=== PATIENT | male | born 1980 | race Caucasian/White ===

== ENCOUNTER 2020-05-24 15:53 | Emergency (ER) | payer OTHER, SELFPAY ==
[2020-05-24 16:12] VITALS: BP 127/62; PULSE 79; RESP 16; TEMP 36.9; O2SAT 99
--- NOTE | 2020-05-24 16:22 | ED.WOUNDLAC ---
HPI - Wound/Laceration General Chief Complaint: Wound/Laceration Stated Complaint: Laceration on finger Time Seen by Provider: 05/24/20 16:22 Source: patient and RN notes reviewed Mode of arrival: ambulatory Limitations: no limitations History of Present Illness HPI narrative: 40-year-old male presents to the [facility] with complaints of a laceration to the distal aspect left fifth finger dorsal with no nailbed involvement. Wound is clean. Bleeding is well controlled. Full range of motion of the DIP and PIP joints. Sensation intact distal to injury. Capillary refill under 2 seconds Unknown last tetanus Related Data Home Medications Medication Instructions Recorded Confirmed No Home Medications 05/24/20 05/24/20 Allergies Allergy/AdvReac Type Severity Reaction Status Date / Time No Known Allergies Allergy Verified 05/24/20 16:12 Review of Systems Review of Systems: Narrative: CONSTITUTIONAL: Denies fever, chills, or sweats. CARDIOVASCULAR: Denies chest pain, palpitations, or edema. RESPIRATORY: Denies cough or dyspnea. SKIN: Denies rash or itching. Laceration dorsal, distal fifth finger left hand MUSCULOSKELETAL: Denies back pain, joint pain, or myalgia. NEUROLOGIC: Denies headache, numbness, or weakness. PSYCHIATRIC: Denies anxiety or depression. All other systems reviewed are negative, except as documented in HPI. PMFSH Social History Social History Gender identity (if verbalized by the patient): Male Comments At the time of my signature, I reviewed and agree with the nursing past medical, surgical, social, and family history. There is no relevant family history pertinent to the patient complaint. Exam Narrative: Exam Narrative: GENERAL: This is a well-nourished, well-developed patient, in no apparent distress. HEAD: normocephalic, atraumatic. EYES: PERRL. Sclera clear/white. Vision is grossly intact. EARS: External ears normal CARDIOVASCULAR: Regular rate and rhythm without murmurs, gallops, or rubs. RESPIRATORY: Clear to auscultation. Breath sounds equal bilaterally. No wheezes, rales, or rhonchi. SKIN: warm, Dry, intact with no suspicious lesions or rash, good texture and turgor. 1.5 cm laceration to the dorsal aspect , DIP joint. Does not separate with movement of joint. Clean, Bleeding controlled. NEURO: awake, alert, and oriented to person, place and time. There were no obvious focal neurologic abnormalities. EXTREMITIES: No joint tenderness, effusion, or edema noted. BACK: Nontender without deformity. Extrem: Hand/finger images: 1. 1.5 cm laceration Course Vital Signs Vital signs: Vital Signs Temperature 98.5 F 05/24/20 16:12 Pulse Rate 79 05/24/20 16:12 Respiratory Rate 16 05/24/20 16:12 Blood Pressure 127/62 05/24/20 16:12 Pulse Oximetry 99 05/24/20 16:12 Temperature 98.5 F 05/24/20 16:12 Pulse Rate 79 05/24/20 16:12 Respiratory Rate 16 05/24/20 16:12 Blood Pressure 127/62 05/24/20 16:12 Pulse Oximetry 99 05/24/20 16:12 reviewed Procedures Laceration Laceration 1: Date: 05/24/20 Time: 16:25 Site: hand Side (If applicable): left Size (cm): 1.5 Description: linear and clean Pre-repair: wound explored and irrigated ====== Skin Level ====== Skin layer closed with: dermabond ====== Subcutaneous Layer ====== ====== Muscle Layer ====== ====== Tendon Layer ====== MDM - Wound/Laceration Differential Diagnosis Differential diagnosis: Likely laceration, abrasion and avulsion of skin Critical Care Time Critical Care Time Critical Care Time: No Discharge Plan Discharge Clinical Impression: Laceration, Vaccine for [id number], combined Patient Disposition: Home, Self-Care Condition: Stable Instructions: Antibiotic Form, Finger Laceration (ED), Skin Adhesive Care (ED) Patient Language: [place]ian Prescriptions: No Action No
== END 2020-05-24 16:33 | disposition home or self-care (01) ==
PROVIDERS: Emergency Provider Nurse Practitioner
DX: S61.217A Laceration without foreign body of left little finger without damage to nail, initial encounter (principal); X58.XXXA Exposure to other specified factors, initial encounter
CPT/HCPCS: 12001; 99212; G0463

== ENCOUNTER 2020-12-19 17:45 | Emergency (ER) | payer OTHER, SELFPAY ==
[2020-12-19 18:00] VITALS: BP 147/88; PULSE 99; RESP 20; TEMP 36.6; O2SAT 100
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
== END 2020-12-19 18:41 | disposition home or self-care (01) ==
PROVIDERS: Emergency Provider Emergency Medicine
DX: S09.90XA Unspecified injury of head, initial encounter (principal); S16.1XXA Strain of muscle, fascia and tendon at neck level, initial encounter; V49.40XA Driver injured in collision with unspecified motor vehicles in traffic accident, initial encounter
CPT/HCPCS: 99283

== ENCOUNTER 2022-05-22 10:15 | Emergency (ER) | payer OTHER, SELFPAY ==
[2022-05-22 10:24] VITALS: BP 125/73; PULSE 65; RESP 16; TEMP 36.6; O2SAT 100
--- NOTE | 2022-05-22 10:48 | ED.URI ---
HPI - URI/Sore Throat General Chief Complaint: Upper Respiratory Infection Stated Complaint: Left Ear Irritation/Headache Time Seen by Provider: 05/22/22 10:25 Source: patient Mode of arrival: ambulatory Limitations: no limitations History of Present Illness HPI Narrative: Kendrick is a 42-year-old male patient presenting to the clinic today with complaints of left ear pain, nasal congestion, cough, fever, headache, body aches, chills, and sore throat x2 days. He reports his temperature was approximately 101? F. He denies any chest pain or shortness of breath. MD elicited complaint: fever, cough, sore throat, rhinorrhea, nasal congestion and other (Headache, body aches, chills) Related Data Allergies Allergy/AdvReac Type Severity Reaction Status Date / Time No Known Allergies Allergy Verified 05/22/22 10:26 Review of Systems Review of Systems: Pertinent positives per HPI. Patient denies any fever, chills, rash, headache, visual changes, dizziness, cough, shortness of breath, chest pain, palpitations, nausea, vomiting, diarrhea, constipation, abdominal pain, or any urinary issues. COUNT INCLUDES THE [facility] Past Medical History Medical History (Updated 05/22/22 @ 10:48 by Bulmaro Gonzalez APRN) Patient denies significant medical history Social History Social History Smoking status: Current every day smoker Alcohol intake: never Substance use: never Gender identity (if verbalized by the patient): Male Comments At the time of my signature, I reviewed and agree with the nursing past medical, surgical, social, and family history. There is no relevant family history pertinent to the patient complaint. Exam Narrative: General: Well-developed, well nourished, in no apparent distress Head: Normocephalic, atraumatic Eyes: Pupils equally round and reactive to light bilaterally, EOM intact, sclera and conjunctive clear, no discharge, lids normal Ears: TMs intact and dull, ear canals clear, no drainage, grossly hearing normal. Nose: Nares patent, clear nasal discharge, no inflammation, no sinus tenderness. Mouth: Oral pharynx red without lesions or masses, good dentition, MMM. Neck: Supple, trachea midline, no enlargement of anterior or posterior cervical nodes, no thyroid masses or goiter palpable. Cardio: Regular rate and rhythm, s1 and s2 normal, no murmur appreciated. Resp: Clear to auscultation bilaterally, no rhonchi, rales, wheezing or rubs Course Course Emergency Course: Portions of this record may have been created with voice recognition software. Level of Care: Express Care Visit Vital Signs Vital signs: Vital Signs Temperature 36.6 C 05/22/22 10:24 Pulse Rate 65 05/22/22 10:24 Respiratory Rate 16 05/22/22 10:24 Blood Pressure 125/73 05/22/22 10:24 Pulse Oximetry 100 05/22/22 10:24 Oxygen Delivery Room Air 05/22/22 10:24 Temperature 36.6 C 05/22/22 10:24 Pulse Rate 65 05/22/22 10:24 Respiratory Rate 16 05/22/22 10:24 Blood Pressure 125/73 05/22/22 10:24 Pulse Oximetry 100 05/22/22 10:24 Oxygen Delivery Room Air 05/22/22 10:24 Vital signs reviewed MDM - URI/Sore Throat MDM Narrative Medical decision making narrative: At the time of visit patient is resting comfortably on the exam table. COVID, influenza, and strep test were performed. Strep screen was negative. COVID test was positive and influenza a test was positive. Supportive measures were discussed with the patient he voiced understanding discharge instructions agrees to treatment plan. Rx for molnupiravir was sent to the pharmacy. Differential Diagnosis Differential diagnosis: Likely upper respiratory infection, otitis media, sinusitis, viral infection, bronchitis, influenza, pharyngitis and other (COVID) Lab Data Labs: Lab Results 05/22/22 Range/Units 10:38 POC SARS CoV-2 Ag Positive (Negative) Influenza A Screen
== END 2022-05-22 10:53 | disposition home or self-care (01) ==
PROVIDERS: Emergency Provider Nurse Practitioner Family
DX: U07.1 COVID-19 (principal); J10.1 Influenza due to other identified influenza virus with other respiratory manifestations; F17.200 Nicotine dependence, unspecified, uncomplicated
CPT/HCPCS: 87081; 87426; 87804; 87880; 99213; C9803; G0463

== ENCOUNTER 2022-11-01 17:48 | Emergency (ER) | payer OTHER, SELFPAY ==
[2022-11-01 17:56] VITALS: BP 127/69; PULSE 63; RESP 16; TEMP 37; O2SAT 100
[2022-11-01 17:57] VITALS: BP 127/69; PULSE 63; RESP 16; TEMP 37; O2SAT 100
--- NOTE | 2022-11-01 18:02 | ED.EAR ---
HPI - Ear Problem General Chief complaint: Ear Stated complaint: Sinus Time Seen by Provider: 11/01/22 18:02 Source: patient Mode of arrival: ambulatory Limitations: no limitations History of Present Illness HPI Narrative: Patient is a 42-year-old male that presents with 2 weeks of ear pain. Patient wears ear plugs daily. Has history of ear infections and tubes as a child. Patient denies any drainage from ear. Denies use of Q-tips. Has minor congestion. Denies any fever, chills, nausea, vomiting, diarrhea, sore throat, cough. MD Complaint: ear pain Related Data Allergies Allergy/AdvReac Type Severity Reaction Status Date / Time No Known Allergies Allergy Verified 11/01/22 17:57 Review of Systems Review of Systems: All systems reviewed & are unremarkable except as noted in HPI and below Constitutional: Constitutional: Denies body ache(s), Denies chills, Denies fever(s), Denies headache(s) and Denies malaise Eyes: Eyes: Denies blurry vision, Denies eye discharge and Denies irritation ENT: Reports otalgia, Denies headache(s), Reports nasal congestion, Denies nasal discharge and Denies sore throat Cardiovascular: Cardiovascular: Denies chest pain, Denies edema, Denies palpitations and Denies dyspnea on exertion Respiratory: Respiratory: Denies cough and Denies dyspnea on exertion Gastrointestinal: Gastrointestinal: Denies abdominal pain, Denies diarrhea, Denies nausea and Denies vomiting Musculoskeletal: Musculoskeletal: Denies back pain, Denies arthralgias and Denies muscle weakness Integumentary/Breasts: Skin/Breast: Denies pruritus and Denies rash Neurologic: Denies headache(s) Psychiatric: Psychiatric: Reports no additional psychiatric complaints Endocrine: Endocrine: Denies palpitations PMFSH Past Medical History Medical History Patient denies significant medical history Social History Social History Smoking status: Current every day smoker Alcohol intake: never Substance use: never Gender identity (if verbalized by the patient): Male Comments At time of signature, agree with nursing past medical, surgical, social and family history. There is no relevant family history pertinent to the presenting complaint? Exam Const: General: cooperative, healthy appearing, no acute distress and well nourished Nutritional Appearance: well nourished Orientation/consciousness: patient oriented x3 Limitations: no limitations HENMT: Head: normal to inspection, normocephalic and atraumatic Ears: hearing grossly normal bilaterally, TM normal on the right, no periauricular adenopathy, Abnormal EAC present erythema on the left, edema on the left and EAC tenderness on the left and TM abnormal erythematous on the left Face/Nose/Sinus: Normal external nose present, Normal nares present, Normal nasal mucous membranes and turbinates present, No nasal discharge present, normal facial exam and sinuses nontender Face and sinus: normal facial exam and sinuses nontender Mouth: Yes Normal oral and palatal mucosa present, Yes lip normal, Yes tongue normal and Yes moist mucous membranes Throat: posterior oropharynx normal, tonsils normal and uvula midline Eyes: General: appearance normal, both eyes and all related structures Alignment and Position: alignment normal and position normal Eyelids: eyelids normal Pupils: Equal, round and reactive pupils present EOM: EOMs intact bilaterally Neck: Neck: normal visual inspection, full ROM, no lymphadenopathy and supple Chest: Chest palpation & inspection: normal inspection of the chest Resp: Effort & Inspection: normal respiratory effort and able to speak in complete sentences Auscultation: clear to auscultation bilaterally, no crackles, no rales, no rhonchi and no wheezes Cardio: Rate: regular rate Rhythm: regular rhythm Heart sounds: S1 normal heart sound present and S
== END 2022-11-01 18:14 | disposition home or self-care (01) ==
PROVIDERS: Emergency Provider Nurse Practitioner Family
DX: H60.502 Unspecified acute noninfective otitis externa, left ear (principal); H66.002 Acute suppurative otitis media without spontaneous rupture of ear drum, left ear; F17.200 Nicotine dependence, unspecified, uncomplicated
CPT/HCPCS: 99213; G0463

== ENCOUNTER 2023-04-17 12:28 | Emergency (ER) | payer OTHER, SELFPAY ==
[2023-04-17 12:29] VITALS: BP 153/87; PULSE 67; RESP 18; TEMP 36.3; O2SAT 100
[2023-04-17 12:39] VITALS: O2SAT 100
[2023-04-17 13:21] LABS: Influenza A QL RT-PCR Negative (Negative); Influenza B QL RT-PCR Negative (Negative); RSV RNA, RT-PCR Negative (Negative); SARS-CoV-2 RNA PCR Negative (Negative)
--- NOTE | 2023-04-17 14:32 | ED.URI ---
HPI - URI/Sore Throat General Chief Complaint: Upper Respiratory Infection Stated Complaint: flu-like sx Time Seen by Provider: 04/17/23 12:50 History of Present Illness HPI Narrative: 43-year-old male presenting with viral symptoms. States his son has had a stomach bug this week. States that he has had some upset stomach so he was concerned that he might also of 1. He denies vomiting or diarrhea. Denies actual abdominal pain. 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 He is monogamous with his . He denies high risk sexual behaviors. Denies concern for STDs or other complaints. Related Data Allergies Allergy/AdvReac Type Severity Reaction Status Date / Time No Known Allergies Allergy Verified 04/17/23 12:33 Review of Systems Review of Systems: All systems reviewed & are unremarkable except as noted in HPI and below PMFSH Past Medical History Medical History Patient denies significant medical history Social History Social History Smoking status: Current every day smoker Alcohol intake: never Substance use: never Gender identity (if verbalized by the patient): Male Exam Narrative: GENERAL: Well-appearing, well-nourished, and in no acute distress. HEAD: Normocephalic, atraumatic. EYES: PERRLA and EOMI. ENT: Mucous membranes moist. NECK: Supple. CHEST: Clear to auscultation. No respiratory distress. HEART: Regular rate and rhythm. ABDOMEN: Soft, nontender, nondistended EXTREMITIES: Normal range of motion. No edema. SKIN: Warm, dry, folliculitis on left wrist NEURO: No focal deficits. Alert and oriented x3. PSYCH: Normal mood and affect. Course Vital Signs Vital signs: Vital Signs Temperature 97.3 F L 04/17/23 12:29 Pulse Rate 67 04/17/23 12:29 Respiratory Rate 18 04/17/23 12:29 Blood Pressure 153/87 H 04/17/23 12:29 Pulse Oximetry 100 04/17/23 12:29 Oxygen Delivery Room Air 04/17/23 12:29 Temperature 97.9 F 04/17/23 14:46 Pulse Rate 71 04/17/23 14:46 Respiratory Rate 19 04/17/23 14:46 Blood Pressure 139/79 04/17/23 14:46 Pulse Oximetry 100 04/17/23 14:46 Oxygen Delivery Room Air 04/17/23 12:39 MDM - URI/Sore Throat MDM Narrative Medical decision making narrative: 43-year-old male presenting with nausea and a wrist rash. Vitals stable. Exam remarkable for the above. He is negative for influenza, COVID, RSV. He does have an area of folliculitis on the left wrist. We discussed appropriate supportive care. Advised PCP follow-up. Appropriate return precautions given. Patient is agreeable this plan. Discharged in stable condition. Differential Diagnosis Differential diagnosis: Likely upper respiratory infection, viral infection, influenza and other (rash, folliculitis ) Lab Data Attestation: I reviewed the patient's lab results. Labs: Lab Results 04/17/23 Range/Units 12:35 Influenza A (RT-PCR) Negative (Negative) Influenza B (RT-PCR) Negative (Negative) RSV (RT-PCR) Negative (Negative) SARS-CoV-2 RNA (RT-PCR) Negative (Negative) Critical Care Time Critical Care Time Critical Care Time: No Discharge Plan Discharge Clinical Impression: Viral infection, Folliculitis Patient Disposition: Home, Self-Care Condition: Stable Instructions: Antibiotic Form, Folliculitis (ED), Viral Syndrome (ED) Additional Instructions: You are negative for influenza, COVID, RSV. You do have a small rash on your left wrist that is consistent with folliculitis. Please apply warm compresses to help it drain and keep the area clean and dry. Please follow-up with your PCP. Prescriptions: No Action ofloxacin 0.3 % drops 5 drp LEFT EAR Q12H 7 Days Qty: 10 0RF amoxicillin 875 mg tablet 875 mg PO Q12H 7 Days Qt
[2023-04-17 14:46] VITALS: BP 139/79; PULSE 71; RESP 19; TEMP 36.6; O2SAT 100
== END 2023-04-17 14:49 | disposition home or self-care (01) ==
PROVIDERS: Emergency Medicine; Emergency Provider Emergency Medicine
DX: B34.9 Viral infection, unspecified (principal); L73.9 Follicular disorder, unspecified; Z20.822 Contact with and (suspected) exposure to COVID-19; F17.200 Nicotine dependence, unspecified, uncomplicated
CPT/HCPCS: 87637; 99283